=== PATIENT | female | born 1995 | race Caucasian/White ===

== ENCOUNTER 2017-04-05 15:18 | Emergency (ER) | payer MEDICAID, OTHER ==
[2016-08-31 07:58] VITALS: BMI 37.2
--- NOTE | 2017-04-05 16:57 | OBDCSUM ---
Datetime: 04/05/2017 16:46 Discharged to, Provider: Home Follow up at, Provider: [facility] Disch Instr Activity: Normal activity Disch Instr Diet: Regular Discharge Diagnosis, Provider: False Labor - Undelivered Discharge Time: 04/05/2017 16:55 Follow up in weeks, Provider: Tomorrow for GBS study Disch Referrals: None
--- NOTE | 2017-04-05 16:58 | OBHP ---
Datetime: 04/05/2017 16:21 IP Adm Impression: Term, intrauterine ; No Active Labor IP Admit Plan: Discharge home Admit Comment, IP Provider: IUP at 40w (EDC April 02 - confirmed by Sono) c/o lower abd pain irre g; no VB +FM; no SROM...She had papers from [facility] but incomplete (called nurse's station and [facility] records ... rev'd chart / no GBS done acc to nurse) POBH: PGYNH: denies STD PMH: obese PSH: denies NKA PSoH: denies smoking ETOH drugs A: IUP at 40w 3 d not in labor PLAN: discharge home labor instructions pre-eclampsia warning arranged for pt to go to [facility] tmrw 8am and will have GBS done/given to pt Fri or Sat pri[place] [facility] [place] [facility] [place] Pelvic Type - PN: Adequate Extremities - PN: Normal Abdomen - PN: Normal Back - PN: Normal Breast - PN: Not Done Lungs - PN: Normal Heart - PN: Normal Thyroid - PN: Normal Neurologic - PN: Normal HEENT - PN: Normal General - PN: Normal Presentation-Admit: Vertex IP Fetus A Comments: Sonogram cephalic FHR - Baseline A Provider: 150 Membranes, Provider: Intact Comments, ACOG Physical Exam: ROS: general: no fatigue/no weakness HEENT: slight GIRALDO; no visual dist CV: No CP; No palpitations Resp: no SOB; no cough GI: No N/V/D : no F/U/D MS: no joint pain VAGINA: no tingling; no pain; no prodromal symtpoms Pool Provider: Negative IP Hx Assessment: The History has been Reviewed and is Current EGA AdmitDate IP: 40.3 Vital Signs Provider: Reviewed; Within Normal Limits IP Chief Complaint: Uterine contractions NICHD Variability Prov Fetus A: Moderate 6-25bpm NICHD Accel Fetus A IP Provider: [id number] FHR Category Provider Fetus A: Category I NICHD Decel Fetus A IP Provider: None Dilatation, Provider: 0 Effacement, Provider: 0 Genitourinary Exam: Normal DTRs - PN: Normal
== END 2017-04-05 17:00 | disposition home or self-care (01) ==
LOC: H.EROB2 15:18
DX: O47.1 False labor at or after 37 completed weeks of gestation (principal); Z3A.40 40 weeks gestation of pregnancy; O48.0 Post-term pregnancy